=== PATIENT | male | born 1965 | race African-American/Black ===

== ENCOUNTER 2024-10-09 01:41 | Emergency (ER) | payer MEDICAID ==
[~2024-10-09] VITALS: Ht 182.9 cm; Wt 117.9 kg
[2024-10-09] MEDS ORDERED: ALBU8.5H8 INH (03:01)
[2024-10-09 03:06] VITALS: BP 138/80; TEMP 99; O2SAT 99
== END 2024-10-09 03:06 | disposition home or self-care (01) ==
LOC: ER 01:55
DX: J06.9 Acute upper respiratory infection, unspecified (principal); E11.9 Type 2 diabetes mellitus without complications
CPT/HCPCS: 71045-TC